=== PATIENT | female | born 1970 | race Caucasian/White ===

== ENCOUNTER 2020-03-20 22:24 | Emergency (ER) | payer MEDICAID ==
[~2020-03-20] VITALS: Ht 162.6 cm; Wt 75.7 kg
--- NOTE | 2020-03-20 22:48 | NUR ---
PT STATES "I HAVE THIS MANAGER PROCESS IMPROVEMENT, THIS MANAGER PROCESS IMPROVEMENT NEEDS TO COME OUT OF MY BODY, THIS THING IS MAKING ME SICK HELL AND I NEED THE EMERGENCY SHOT FOR VIRAL RESEARCH." RN ASKED PT WHAT DEVICE IT IS AND PT HANDED RN A NUMBER OF HANDWRITTEN PAGES WITH RAMBLING WORDS. PT SPEECH IS RUSHED AND RAMBLING, PT UNABLE TO ELABORATE ON PAST MEDICAL HISTORY OR CURRETN SYMPTOMS. JUST STATES "MY LEFT SIDE HURTS AND IM WEAK AND I CANT EVEN THINK." PT STATES I NEED "AN MRI OF MY WHOLE BODY, ALL THE LABS AND TO SCAN EVERYTHING TO CHECK FOR ALL THE CANCERS AND SHIT." GROSS NEURO INTACT, ABDOMEN NOTED TO SEEM DISTENDED DENIES PAIN, LAST BM TODAY. WCTM. GIVEN WARM BLANKETS FOR COMFORT PT PLACED ON SPO2/BP MONITORING.
[2020-03-20 22:51] VITALS: BP 107/71
== END 2020-03-20 23:27 | disposition home or self-care (01) ==
LOC: ED 23:05
DX: F15.150 Other stimulant abuse with stimulant-induced psychotic disorder with delusions (principal); F22 Delusional disorders; Z72.9 Problem related to lifestyle, unspecified
CPT/HCPCS: 99281

== ENCOUNTER 2020-04-09 11:08 | Inpatient (IN) | payer MEDICAID ==
[~2020-04-09] VITALS: Ht 162.6 cm; Wt 75.9 kg
[2020-04-09] MEDS ORDERED: ACETAMINOPHEN 325 MG TABLET PO PRN (11:30)
[2020-04-09] MEDS ORDERED: BISACODYL 10 MG SUPP PR PRN (11:30)
[2020-04-09] MEDS ORDERED: POLYETHYLENE GLYCOL 17 GM PACKET PO PRN (11:30)
[2020-04-09] MEDS ORDERED: ONDANSETRON ODT 4 MG PO PRN (11:30)
[2020-04-09] MEDS ORDERED: DOCUSATE 100 MG CAPSULE PO PRN (11:30)
[2020-04-09] MEDS: PLEASE ENTER HEIGHT AND WEIGHT MC SCH ×2 (13:00→21:00)
[2020-04-09 14:38] LABS: BASOPHILS % (AUTO) 1 % (0-1); EOSINOPHILS % (AUTO) 2 % (1-7); LYMPHOCYTES % (AUTO) 34 % (22-44); MEAN CORPUSCULAR HEMOGLOBIN 28.2 pg (27.0-34.8); MEAN CORPUSCULAR HGB CONC 32.4 g/dL (32.4-35.8); MEAN PLATELET VOLUME 8.2 fL (7.4-10.4); MONOCYTES % (AUTO) 8 % (2-9); NEUTROPHILS % (AUTO) 55 % (42-75); PLATELET COUNT 203 x10^3/uL (130-400); RED BLOOD COUNT 5.11 x10^6/uL (3.82-5.3); RED CELL DISTRIBUTION WIDTH 16.5 % (9.6-15.2)
[2020-04-09 14:44] LABS: MD NO
[2020-04-09 14:51] LABS: ALBUMIN 3.1 g/dL (3.4-5.0); ANION GAP 4 mmol/L (5-15); CALCIUM 8.7 mg/dL (8.5-10.1); CHLORIDE 109 mmol/L (98-107)
[2020-04-09 15:18] LABS: ALANINE AMINOTRANSFERASE 37 U/L (12-78); ALKALINE PHOSPHATASE 64 U/L (45-117); BILIRUBIN,TOTAL 0.4 mg/dL (0.2-1.0); CREATININE 0.68 mg/dL (0.55-1.02); FREE T4 (FREE THYROXINE) 1.03 ng/dL (0.76-1.46); TOTAL PROTEIN 6.6 g/dL (6.4-8.2)
[2020-04-09 16:02] VITALS: BP 115/79
[2020-04-09] MEDS ORDERED: NICOTINE 7 MG/24 HR PATCH.TD24 TD SCH (17:30)
[2020-04-09] MEDS ORDERED: NICOTINE 7 MG/24 HR PATCH.TD24 TD ONE (17:30)
[2020-04-09 20:11] VITALS: BP 108/71
[2020-04-10] MEDS: PLEASE ENTER HEIGHT AND WEIGHT MC SCH ×2 (05:33→13:00)
[2020-04-10 06:04] LABS: CHOL/HDL RATIO 3.1; LDL/HDL RATIO 1.7 (0.5-3.0)
[2020-04-10 07:33] VITALS: BP 119/69
[2020-04-10] MEDS: NICOTINE 7 MG/24 HR PATCH.TD24 TD SCH (07:38)
[2020-04-10] MEDS ORDERED: RISPERIDONE 1 MG TABLET PO SCH (12:30)
[2020-04-10] MEDS: ARIPIPRAZOLE 5 MG TABLET PO SCH ×2 (13:31→20:34)
[2020-04-10] MEDS: NAPROXEN 500 MG TABLET PO SCH ×2 (13:31→20:34)
[2020-04-10 15:19] LABS: MICROSCOPIC INDICATED
[2020-04-10 19:21] VITALS: BP 106/65
[2020-04-10] MEDS: DIVALPROEX 250 MG TABLET.DR PO SCH (20:34)
[2020-04-11 07:13] VITALS: BP 110/70
[2020-04-11] MEDS: ARIPIPRAZOLE 5 MG TABLET PO SCH ×2 (08:37→20:27)
[2020-04-11] MEDS: NICOTINE 7 MG/24 HR PATCH.TD24 TD SCH (08:37)
[2020-04-11] MEDS: NAPROXEN 500 MG TABLET PO SCH ×2 (08:37→20:26)
[2020-04-11] MEDS ORDERED: FLUCONAZOLE 200 MG TABLET PO SCH (09:30)
[2020-04-11 18:26] VITALS: BP 107/73
[2020-04-11] MEDS: DIVALPROEX 250 MG TABLET.DR PO SCH (20:26)
[2020-04-12 07:09] VITALS: BP 110/70
[2020-04-12] MEDS: ARIPIPRAZOLE 5 MG TABLET PO SCH (08:03)
[2020-04-12] MEDS: NAPROXEN 500 MG TABLET PO SCH ×2 (08:03→20:47)
[2020-04-12] MEDS: NICOTINE 7 MG/24 HR PATCH.TD24 TD SCH (08:05)
[2020-04-12 19:17] VITALS: BP 113/76
[2020-04-12] MEDS: ARIPIPRAZOLE 10 MG TABLET PO SCH (20:48)
[2020-04-12] MEDS: DIVALPROEX 250 MG TABLET.DR PO SCH (20:48)
[2020-04-13 07:44] VITALS: BP 102/68
[2020-04-13] MEDS: ARIPIPRAZOLE 10 MG TABLET PO SCH ×2 (08:38→20:01)
[2020-04-13] MEDS: NICOTINE 7 MG/24 HR PATCH.TD24 TD SCH (08:38)
[2020-04-13] MEDS: NAPROXEN 500 MG TABLET PO SCH ×2 (08:38→20:01)
[2020-04-13 19:49] VITALS: BP 112/78
[2020-04-13] MEDS: DIVALPROEX 250 MG TABLET.DR PO SCH (19:59)
[2020-04-14 07:37] VITALS: BP 102/69
[2020-04-14] MEDS: NAPROXEN 500 MG TABLET PO SCH (08:20)
[2020-04-14] MEDS: ARIPIPRAZOLE 10 MG TABLET PO SCH (08:20)
[2020-04-14] MEDS: NICOTINE 7 MG/24 HR PATCH.TD24 TD SCH (08:21)
[2020-04-14] MEDS ORDERED: DIVA-59 PO (14:00)
[2020-04-14] MEDS ORDERED: ARIP10TA33 PO (14:00)
[2020-04-14] MEDS ORDERED: NAPR-856 PO (14:00)
[2020-04-14] MEDS ORDERED: NICO-485 TD (14:00)
== END 2020-04-14 15:54 | disposition home or self-care (01) | DRG 750 ==
LOC: 3E 11:11
PROVIDERS: ADMIT Psychiatry & Neurology Psychosomatic Medicine; ATTEND Psychiatry & Neurology Psychosomatic Medicine
DX: F25.0 Schizoaffective disorder, bipolar type (principal); F15.21 Other stimulant dependence, in remission; F17.200 Nicotine dependence, unspecified, uncomplicated; Z79.899 Other long term (current) drug therapy
CPT/HCPCS: 36415; 71045; 80053; 80061; 81001; 82140; 82607; 84439; 84443; 85025; 87806; 93005; G0475

== ENCOUNTER 2020-04-29 22:57 | Emergency (ER) | payer MEDICAID ==
[~2020-04-29] VITALS: Ht 167.6 cm; Wt 60.0 kg
[~2020-04-29 22:57] MED LIST: ARIP10TA33 PO; DIVA-59 PO; NAPR-856 PO; NICO-485 TD
[2020-04-29 23:03] VITALS: BP 125/80
--- NOTE | 2020-04-29 23:45 | NUR ---
PT. TO ROOM FROM LOBBY AT THIS TIME. PT. STATES "I HAVE A SCHEDULE HANGER IMPLANTED IN ME FROM ORGANIZED CRIME AND I WANT IT REMOVED." DR. MANDUJANO IN TO EVAL PT. PT. STATES THE DEVICE IS IN HER LLQ ABD. DR. MANDUJANO ASSESSING. PT. STATES "IT'S PROBABLY REALLY DEEP, THE PUT ME OUT WHEN THEY DID IT." PT. STATES THIS HAPPENED RECENTLY WHILE IN [place]. PT. DENIES ANY SI/HI.
[2020-04-30] MEDS ORDERED: ACETAMINOPHEN 325 MG TABLET PO ONE
[2020-04-30] MEDS ORDERED: OLANZAPINE 10 MG TABLET PO ONE
[2020-04-30] MEDS ORDERED: ACETAMINOPHEN 325 MG TABLET ONE (00:12)
[2020-04-30] MEDS ORDERED: OLANZAPINE 10 MG TABLET ONE (00:12)
--- NOTE | 2020-04-30 00:16 | NUR ---
PT. WITH TANGENTAL THORUGHT PROCESS. "THERE IS GOLD THAT GOES AROUND THE WORLD, THERE IS NO WAY THAT I CAN WALK BECAUSE THE ANTI-VIRALS BREAK DOWN AND GIVE YOU CANCER. IT ALL HAS SOMETHING TO DO WITH ALESSANDRA HORN DYING."
--- NOTE | 2020-04-30 00:20 | NUR ---
PT. STATES "I AM SICK I AM NOT MENTAL, I DON'T TAKE ANY OF THAT MENTAL SHIT(MEDS)".
== END 2020-04-30 00:51 | disposition home or self-care (01) ==
LOC: ED 23:48
DX: F41.1 Generalized anxiety disorder (principal); F22 Delusional disorders; F17.200 Nicotine dependence, unspecified, uncomplicated
CPT/HCPCS: 99283

== ENCOUNTER 2020-05-06 11:49 | Emergency (ER) | payer MEDICAID ==
[~2020-05-06] VITALS: Ht 162.6 cm; Wt 72.4 kg
--- NOTE | 2020-05-06 12:04 | NUR ---
PT REFUSED EKG IN TRIAGE
[2020-05-06 12:49] LABS: BASOPHILS % (AUTO) 1 % (0-1); EOSINOPHILS % (AUTO) 1 % (1-7); LYMPHOCYTES % (AUTO) 39 % (22-44); MEAN CORPUSCULAR HEMOGLOBIN 28.9 pg (27.0-34.8); MEAN CORPUSCULAR HGB CONC 33.4 g/dL (32.4-35.8); MEAN PLATELET VOLUME 8.5 fL (7.4-10.4); MONOCYTES % (AUTO) 8 % (2-9); NEUTROPHILS % (AUTO) 51 % (42-75); PLATELET COUNT 224 x10^3/uL (130-400); RED CELL DISTRIBUTION WIDTH 15.5 % (9.6-15.2)
[2020-05-06 12:56] LABS: ALANINE AMINOTRANSFERASE 30 U/L (12-78); ALBUMIN 3.7 g/dL (3.4-5.0); ANION GAP 6 mmol/L (5-15); CALCIUM 8.9 mg/dL (8.5-10.1); CHLORIDE 107 mmol/L (98-107); CREATININE 0.75 mg/dL (0.55-1.02)
[2020-05-06 13:00] LABS: ALKALINE PHOSPHATASE 74 U/L (45-117); BILIRUBIN,TOTAL 1.2 mg/dL (0.2-1.0); TOTAL PROTEIN 7.6 g/dL (6.4-8.2); TROPONIN I < 0.015 ng/mL (0.000-0.045)
[2020-05-06 13:02] LABS: MD NO
[2020-05-06 13:06] VITALS: BP 101/72
--- NOTE | 2020-05-06 13:11 | NUR ---
pt presents to ED with c/o sternal chest pain, level 5/10, associated with fatigue x 1 month. pt notes pain is dull and worsened with exertion. pt also c/o left lower dental pain for approx same duration. pt is a&o, resps even and unlabored, nsr on ekg monitor with no ectopy noted. EKG taken in room (initially refused), all monitors in place. pt a&o, resps even and unlabored. awaiting lab/cxr results. call light in reach.
== END 2020-05-06 13:58 | disposition home or self-care (01) ==
LOC: ED 13:23
DX: R07.89 Other chest pain (principal); R06.00 Dyspnea, unspecified; F15.10 Other stimulant abuse, uncomplicated; I21.9 Acute myocardial infarction, unspecified; Z90.49 Acquired absence of other specified parts of digestive tract
CPT/HCPCS: 36415; 71045; 80053; 83880; 84484; 85025; 93005; 99285